=== PATIENT | male | born 1995 | race Caucasian/White ===

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

== ENCOUNTER 2018-02-21 00:34 | Emergency (ER) | payer OTHER ==
[~2018-02-21] VITALS: Ht 175.3 cm; Wt 67.0 kg
[~2018-02-21 00:34] MED LIST: BACT800T5 PO
[2018-02-21 00:41] VITALS: BP 122/91; PULSE 95; RESP 18; O2SAT 99
--- NOTE | 2018-02-21 01:00 | PD ---
HPI Chief Complaint: Psychiatric Symptoms Time Seen by Provider: 00:37 Travel History International Travel<30 days: No Contact w/Intl Traveler<30days: No Traveled to known affect area: No History of Present Illness HPI 22-year-old male presents to the emergency department under Espinosa act by PD. Patient is a student at [employer]. He had just finished his sophomore year. 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 The patient states that he has had issues with his housemates as well as some of the members of his fraternity. He finds it difficult being the president. He sees people doing drugs and being inappropriate times. He feels overwhelmed with stress sometimes. He admits to alcohol this evening. He feels that he sometimes is a bother to his housemates and friends. He had gotten upset over overhearing some of his friends talk. He had taken a knife out of the draw and put it in his pocket and told his friends he wanted to disappear. He wanted to see if his friends really cared about him and would make an effort. The patient denies any true suicidal ideation. No homicidal ideation. He denies any toxic ingestions. He does admit to drinking excessive alcohol. He denies any history of mental illness. He states that he plans on getting his degree and going back to his home country. Patient denies any acute medical complaints. [facility] Past Medical History Medical History: Denies Significant Hx Diminished Hearing: No Immunizations Current: Yes Tetanus Vaccination: < 5 Years Past Surgical History Surgical History: No Previous Surgery Social History Alcohol Use: Yes (OCC) Tobacco Use: No Substance Use: No Allergies-Medications (Allergen,Severity, Reaction): Coded Allergies: penicillin G (Unverified Allergy, Unknown, 05/06/17) shellfish derived (Unverified Allergy, Unknown, 05/06/17) Reported Meds & Prescriptions Reported Meds & Active Scripts Active No Active Prescriptions or Reported Medications Review of Systems General / Constitutional: No: Fever Eyes: No: Visual changes HENT: No: Headaches Cardiovascular: No: Chest Pain or Discomfort Respiratory: No: Shortness of Breath Gastrointestinal: No: Abdominal Pain Genitourinary: No: Dysuria Musculoskeletal: No: Pain Skin: No Rash Neurologic: No: Weakness Psychiatric: Positive: Depression, Mood Disorder, No: Anxiety, Suicidal Ideations, Disorder of Thought, Substance Abuse, Homicidal Ideation Endocrine: No: Polydipsia Hematologic/Lymphatic: No: Easy Bruising Physical Exam Narrative GENERAL: Well-nourished, well-developed patient. SKIN: Warm and dry. HEAD: Normocephalic and atraumatic. EYES: No scleral icterus. No injection or drainage. ENT: No nasal drainage noted. Mucous membranes pink. Airway patent. NECK: Supple, trachea midline. Moves head freely without obvious discomfort. CARDIOVASCULAR: Regular rate and rhythm without murmurs, gallops, or rubs. RESPIRATORY: Breath sounds equal bilaterally. No accessory muscle use. GASTROINTESTINAL: Abdomen soft, non-tender, nondistended. EXTREMITIES: No cyanosis or edema. BACK: Nontender without obvious deformity. No CVA tenderness. NEURO: Patient is alert and oriented. no sensorimotor deficits. Nonfocal. Normal speech. PSYCH: No delusions. No auditory or visual hallucinations. Data Data Last Documented VS Vital Signs Date Time Temp Pulse Resp B/P (MAP) Pulse Ox O2 Delivery O2 Flow Rate FiO2 02/21/18 00:41 95 18 122/91 (101) 99 Room Air Orders Orders Complete Blood Count With Diff (02/21/18 00:48) Comprehensive Metabolic Panel (02/21/18 00:48) Psych Screen (02/21/18 00:48) Drug Screen, Random Urine (02/21/18 00:48) Alcohol (Ethanol) (02/21/18 00:48) Salicylates (Aspirin) (02/21/18 00:48) Tylenol (Acetaminophen) (02/21/18 00:48) Labs Laboratory Tests Test 02/21/18 00:50 02/21/18 00:58 White Blood Count 6.0 TH/MM3 Red Blood Count 5.32 MIL/MM3 Hemoglobin 14.8 GM/DL Hematocrit 44.3 % Mean Corpuscular Volume 83.2 FL Mean Corpuscular Hemoglobin 27.8 PG Mean Corpuscular Hemoglobin Concent 33.4 % Red Cell Distribution Width 13.7 % Platelet Count 217 TH/MM3 Mean Platelet Volume 8.3 FL Neutrophils (%) (Auto) 74.1 % Lymphocytes (%) (Auto) 18.1 % Monocytes (%) (Auto) 5.0 % Eosinophils (%) (Auto) 2.1 % Basophils (%) (Auto) 0.7 % Neutrophils # (Auto) 4.5 TH/MM3 Lymphocytes # (Auto) 1.1 TH/MM3 Monocytes # (Auto) 0.3 TH/MM3 Eosinophils # (Auto) 0.1 TH/MM3 Basophils # (Auto) 0.0 TH/MM3 CBC Comment DIFF FINAL Differential Comment Blood Urea Nitrogen 9 MG/DL Creatinine 1.12 MG/DL Random Glucose 102 MG/DL Total Protein 8.5 GM/DL Albumin 4.6 GM/DL Calcium Level 8.9 MG/DL Alkaline Phosphatase 80 U/L Aspartate Amino Transf (AST/SGOT) 20 U/L Alanine Aminotransferase (ALT/SGPT) 28 U/L Total Bilirubin 0.4 MG/DL Sodium Level 142 MEQ/L Potassium Level 3.7 MEQ/L Chloride Level 104 MEQ/L Carbon Dioxide Level 26.5 MEQ/L Anion Gap 12 MEQ/L Estimat Glomerular Filtration Rate 84 ML/MIN Salicylates Level LESS THAN 1.7 MG/DL Acetaminophen Level LESS THAN 2.0 MCG/ML Ethyl Alcohol Level 125 MG/DL MDM Medical Decision Making Medical Screen Exam Complete: Yes Emergency Medical Condition: Yes Medical Record Reviewed: Yes Interpretation(s) Laboratory Tests Test 02/21/18 00:50 02/21/18 00:58 White Blood Count 6.0 TH/MM3 Red Blood Count 5.32 MIL/MM3 Hemoglobin 14.8 GM/DL Hematocrit 44.3 % Mean Corpuscular Volume 83.2 FL Mean Corpuscular Hemoglobin 27.8 PG Mean Corpuscular Hemoglobin Concent 33.4 % Red Cell Distribution Width 13.7 % Platelet Count 217 TH/MM3 Mean Platelet Volume 8.3 FL Neutrophils (%) (Auto) 74.1 % Lymphocytes (%) (Auto) 18.1 % Monocytes (%) (Auto) 5.0 % Eosinophils (%) (Auto) 2.1 % Basophils (%) (Auto) 0.7 % Neutrophils # (Auto) 4.5 TH/MM3 Lymphocytes # (Auto) 1.1 TH/MM3 Monocytes # (Auto) 0.3 TH/MM3 Eosinophils # (Auto) 0.1 TH/MM3 Basophils # (Auto) 0.0 TH/MM3 CBC Comment DIFF FINAL Differential Comment Blood Urea Nitrogen 9 MG/DL Creatinine 1.12 MG/DL Random Glucose 102 MG/DL Total Protein 8.5 GM/DL Albumin 4.6 GM/DL Calcium Level 8.9 MG/DL Alkaline Phosphatase 80 U/L Aspartate Amino Transf (AST/SGOT) 20 U/L Alanine Aminotransferase (ALT/SGPT) 28 U/L Total Bilirubin 0.4 MG/DL Sodium Level 142 MEQ/L Potassium Level 3.7 MEQ/L Chloride Level 104 MEQ/L Carbon Dioxide Level 26.5 MEQ/L Anion Gap 12 MEQ/L Estimat Glomerular Filtration Rate 84 ML/MIN Salicylates Level LESS THAN 1.7 MG/DL Acetaminophen Level LESS THAN 2.0 MCG/ML Ethyl Alcohol Level 125 MG/DL Differential Diagnosis MDM: High Differential diagnoses: Schizophrenia, schizoaffective disorder, bipolar, anxiety, depression, adjustment reaction, mood disorder NOS, ODD, depressive disorder NOS, dementia, dementia with agitation, psychosis NOS, substance induced mood disorder, DMDD, Asperger syndrome, infection,electrolyte abnormality, malingering. Narrative Course Mental health screening discussed with the patient. Psychiatric screen ordered. The patient has been medically cleared. This is medical clearance for psychiatric admission Diagnosis Primary Impression: Medical clearance for psychiatric admission Scripts No Active Prescriptions or Reported Meds Condition: Stable Hoang Corado Feb 21, 2018 01:00
[2018-02-21 01:01] LABS: AUTOMATED NEUTROPHIL # 4.5 TH/MM3 (1.8-7.7); BASOPHIL % 0.7 % (0.0-2.0); EOSINOPHIL # 0.1 TH/MM3 (0-0.4); EOSINOPHIL % 2.1 % (0.0-4.0); HEMATOCRIT 44.3 % (39.0-51.0); HEMOGLOBIN 14.8 GM/DL (13.0-17.0); LYMPH % 18.1 % (9.0-44.0); LYMPHOCYTE # 1.1 TH/MM3 (1.0-4.8); MEAN CELL VOLUME 83.2 FL (80.0-100.0); MEAN CORPUSCULAR HEMOGLOBIN 27.8 PG (27.0-34.0); MEAN CORPUSCULAR HGB CONC 33.4 % (32.0-36.0); MEAN PLATELET VOLUME 8.3 FL (7.0-11.0); MONOCYTE # 0.3 TH/MM3 (0-0.9); NEUT % 74.1 % (16.0-70.0); PLATELET COUNT 217 TH/MM3 (150-450); RED BLOOD COUNT 5.32 MIL/MM3 (4.50-5.90); RED CELL DISTRIBUTION WIDTH 13.7 % (11.6-17.2)
[2018-02-21 01:22] LABS: ALBUMIN 4.6 GM/DL (3.4-5.0); ALT (GPT) 28 U/L (9-52); AST (GOT) 20 U/L (15-39); BICARBONATE 26.5 MEQ/L (21.0-32.0); BLOOD UREA NITROGEN 9 MG/DL (7-18); CALCIUM 8.9 MG/DL (8.5-10.1); CHLORIDE 104 MEQ/L (98-107); CREATININE 1.12 MG/DL (0.60-1.30); GLOMERULAR FILTRATION RATE 84 ML/MIN (>89); GLUCOSE,RANDOM 102 MG/DL (74-106); SODIUM (NA) 142 MEQ/L (136-145)
[2018-02-21 01:34] LABS: ALKALINE PHOSPHATASE 80 U/L (45-117); TOTAL BILIRUBIN ADULT 0.4 MG/DL (0.2-1.0); TOTAL PROTEIN 8.5 GM/DL (6.4-8.2)
[2018-02-21 01:37] LABS: ACETAMINOPHEN LESS THAN 2.0 MCG/ML (10.0-30.0)
[2018-02-21 08:28] VITALS: BP 128/62; PULSE 76; RESP 18; O2SAT 98
--- NOTE | 2018-02-21 09:55 | PD ---
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 He reported difficulty in dealing with stressors. He denies SI/HI. He has been evaluated by psychiatry this morning and his Espinosa Act has been lifted. Data Data Last Documented VS Vital Signs Date Time Temp Pulse Resp B/P (MAP) Pulse Ox O2 Delivery O2 Flow Rate FiO2 02/21/18 08:28 76 18 128/62 (84) 98 Room Air Orders Orders Complete Blood Count With Diff (02/21/18 00:48) Comprehensive Metabolic Panel (02/21/18 00:48) Psych Screen (02/21/18 00:48) Drug Screen, Random Urine (02/21/18 00:48) Alcohol (Ethanol) (02/21/18 00:48) Salicylates (Aspirin) (02/21/18 00:48) Tylenol (Acetaminophen) (02/21/18 00:48) Diet Regular Basic (02/21/18 Breakfast) Ed Discharge Order (02/21/18 09:52) Labs Laboratory Tests Test 02/21/18 00:50 02/21/18 00:58 White Blood Count 6.0 TH/MM3 Red Blood Count 5.32 MIL/MM3 Hemoglobin 14.8 GM/DL Hematocrit 44.3 % Mean Corpuscular Volume 83.2 FL Mean Corpuscular Hemoglobin 27.8 PG Mean Corpuscular Hemoglobin Concent 33.4 % Red Cell Distribution Width 13.7 % Platelet Count 217 TH/MM3 Mean Platelet Volume 8.3 FL Neutrophils (%) (Auto) 74.1 % Lymphocytes (%) (Auto) 18.1 % Monocytes (%) (Auto) 5.0 % Eosinophils (%) (Auto) 2.1 % Basophils (%) (Auto) 0.7 % Neutrophils # (Auto) 4.5 TH/MM3 Lymphocytes # (Auto) 1.1 TH/MM3 Monocytes # (Auto) 0.3 TH/MM3 Eosinophils # (Auto) 0.1 TH/MM3 Basophils # (Auto) 0.0 TH/MM3 CBC Comment DIFF FINAL Differential Comment Blood Urea Nitrogen 9 MG/DL Creatinine 1.12 MG/DL Random Glucose 102 MG/DL Total Protein 8.5 GM/DL Albumin 4.6 GM/DL Calcium Level 8.9 MG/DL Alkaline Phosphatase 80 U/L Aspartate Amino Transf (AST/SGOT) 20 U/L Alanine Aminotransferase (ALT/SGPT) 28 U/L Total Bilirubin 0.4 MG/DL Sodium Level 142 MEQ/L Potassium Level 3.7 MEQ/L Chloride Level 104 MEQ/L Carbon Dioxide Level 26.5 MEQ/L Anion Gap 12 MEQ/L Estimat Glomerular Filtration Rate 84 ML/MIN Salicylates Level LESS THAN 1.7 MG/DL Acetaminophen Level LESS THAN 2.0 MCG/ML Ethyl Alcohol Level 125 MG/DL Urine Opiates Screen NEG Urine Barbiturates Screen NEG Urine Amphetamines Screen NEG Urine Benzodiazepines Screen NEG Urine Cocaine Screen NEG Urine Cannabinoids Screen NEG MDM Supervised Visit with ANGELINA: No Diagnosis Primary Impression: Medical clearance for psychiatric admission Scripts No Active Prescriptions or Reported Meds Disposition: DISCHARGE HOME Condition: Stable Phyllis Mccall MD Feb 21, 2018 09:55
--- NOTE | 2018-02-21 10:25 | PD ---
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 Espinosa act states, "highly upset over ongoing issues with friends. Recovered nicely from kitchen draw and put in pocket, told friends he just wanted to disappear." Patient is from [place] her to study at [employer]. He states that he lives in a house with people and he lives in one of the rooms with two other people. He described constant conflict among members of the home. He shares that he is bisexual and this has caused concerns because he is very connected to one member of the home which starts arguments. He states that last night he had five beers and when he returned home the tension among the roommates escalated and he told them he was moving out, but had no place to go. He endorses that he said " I want to disappear" while he had a knife, but had no intention of self harm or harming others. He states , " I had too much to drink and I just wanted their attention." He shares that they will only be living in the home until March 17 and then he moves to [place] for his studies , followed by [employer] and then last semester back in [employer]. His alcohol level on arrival was 125. UDS for drugs negative. Chart reviewed and patient discussed with WILFREDO Licona in the ED. Patient in in Room D41. He is in [facility] [employer]. Well groomed and looks his stated age. He has good concentration. Insight and judgement is good. No abnormal thoughs. Thought process is concrete. Steady gait. Denies any suicidal or homicidal thoughts. No medical concerns. No past psychiatric history. Patient does not smoke or participate in any illicit drugs. He admits that he drinks at social functions. Based on patients presentation and assessment he does not meet criteria for admission. He is anxious to be discharged as his homework to complete today. He is at low risk for harm to self or others. Will lift Espinosa Act. Patient is aware that their are services at his school if he needs further assistance for his anxiety. He has been to the school counseling center which has helped in the past. Dx: Anxiety PFSH Past Medical History Narrative Medical No past psychiatric history. Medical History: Denies Significant Hx Diminished Hearing: No Immunizations Current: Yes Tetanus Vaccination: < 5 Years Past Surgical History Surgical History: No Previous Surgery Psychiatric History Psychiatric History Hx Psychiatric Treatment: PT DENIES History of Inpatient Treatment: No Social History Hx Alcohol Use: Yes (OCC) Hx Tobacco Use: No Hx Substance Use: No (ALCOHOL OCC) Hx of Substance Use Treatment: No Allergies-Medications (Allergen,Severity, Reaction): Coded Allergies: penicillin G (Unverified Allergy, Unknown, 02/21/18) shellfish derived (Unverified Allergy, Unknown, 02/21/18) Reported Meds & Prescriptions Reported Meds & Active Scripts Active No Active Prescriptions or Reported Medications Mental Status Examination Appearance: Appropriate Consciousness: Alert Orientation: x4 Motor Activity: Normal gait Speech: Unremarkable Language: Adequate Fund of Knowledge: Adequate Attention and Concentration: Adequate Memory: Unremarkable Mood: Appropriate Affect: Appropriate Thought Process & Associations: Intact Thought Content: Appropriate Hallucination Type: None Delusion Type: None Suicidal Ideation: No Suicidal Plan: No Suicidal Intention: No Homicidal Ideation: No Homicidal Plan: No Homicidal Intention: No Insight: Adequate Judgment: Adequate MDM Medical Decision Making Assessment/Plan Patient is a 22 y/o [employer] student from [employer]. He is living in a home with four other people. There are constant conflicts among the roommates. He was drinking last night and told the roommates that he was going to move out with no place to go. He took a knife and stated ," I want to disappear." The fraternity leader called the police and he was placed under a Espinosa Act. Patient describes the plans for his education, states he has a very supportive and protective family. He endorses the he took the knife to get their attention and had too much to drink. Based on his presentation and low risk for self harm or harm of others will lift the Espinosa Act. Patient has been to the school counseling center and want to meet with them again this week. Orders Orders Complete Blood Count With Diff (02/21/18 00:48) Comprehensive Metabolic Panel (02/21/18 00:48) Psych Screen (02/21/18 00:48) Drug Screen, Random Urine (02/21/18 00:48) Alcohol (Ethanol) (02/21/18 00:48) Salicylates (Aspirin) (02/21/18 00:48) Tylenol (Acetaminophen) (02/21/18 00:48) Diet Regular Basic (02/21/18 Breakfast) Ed Discharge Order (02/21/18 09:52) Results Vital Signs Date Time Temp Pulse Resp B/P (MAP) Pulse Ox O2 Delivery O2 Flow Rate FiO2 02/21/18 08:28 76 18 128/62 (84) 98 Room Air 02/21/18 00:41 95 18 122/91 (101) 99 Room Air Laboratory Tests Test 02/21/18 00:50 02/21/18 00:58 White Blood Count 6.0 Red Blood Count 5.32 Hemoglobin 14.8 Hematocrit 44.3 Mean Corpuscular Volume 83.2 Mean Corpuscular Hemoglobin 27.8 Mean Corpuscular Hemoglobin Concent 33.4 Red Cell Distribution Width 13.7 Platelet Count 217 Mean Platelet Volume 8.3 Neutrophils (%) (Auto) 74.1 Lymphocytes (%) (Auto) 18.1 Monocytes (%) (Auto) 5.0 Eosinophils (%) (Auto) 2.1 Basophils (%) (Auto) 0.7 Neutrophils # (Auto) 4.5 Lymphocytes # (Auto) 1.1 Monocytes # (Auto) 0.3 Eosinophils # (Auto) 0.1 Basophils # (Auto) 0.0 CBC Comment DIFF FINAL Differential Comment Blood Urea Nitrogen 9 Creatinine 1.12 Random Glucose 102 Total Protein 8.5 Albumin 4.6 Calcium Level 8.9 Alkaline Phosphatase 80 Aspartate Amino Transf (AST/SGOT) 20 Alanine Aminotransferase (ALT/SGPT) 28 Total Bilirubin 0.4 Sodium Level 142 Potassium Level 3.7 Chloride Level 104 Carbon Dioxide Level 26.5 Anion Gap 12 Estimat Glomerular Filtration Rate 84 Salicylates Level LESS THAN 1.7 Acetaminophen Level LESS THAN 2.0 Ethyl Alcohol Level 125 Urine Opiates Screen NEG Urine Barbiturates Screen NEG Urine Amphetamines Screen NEG Urine Benzodiazepines Screen NEG Urine Cocaine Screen NEG Urine Cannabinoids Screen NEG Diagnosis Primary Impression: Anxiety Prescriptions No Active Prescriptions or Reported Meds Disposition: 01 DISCHARGE HOME Condition: Stable Jenifer Granger Feb 21, 2018 10:25
== END 2018-02-21 10:45 | disposition home or self-care (01) ==
LOC: NEPD 00:34
DX: F41.9 Anxiety disorder, unspecified (principal); R78.0 Finding of alcohol in blood; Y90.6 Blood alcohol level of 120-199 mg/100 ml
CPT/HCPCS: 80053; 80307; 85025; 99284